=== PATIENT | male | born 1990 | race Caucasian/White ===

== ENCOUNTER → 2020-09-23 | Outpatient (CLI) | payer BC | LOC: HEART 5 08:40 | DX: R00.2 Palpitations (principal) ==

== ENCOUNTER 2020-12-15 13:05 | Emergency (ER) | payer BC | END 2020-12-15 14:40 | disposition left against medical advice (07) | LOC: ER1 13:05 | DX: Z53.21 Procedure and treatment not carried out due to patient leaving prior to being seen by health care provider (principal) ==

== ENCOUNTER 2021-05-05 13:35 | Emergency (ER) | payer BC ==
[2021-05-05] MEDS ORDERED: AUGMENTIN 875-1 EACH PO (14:45)
== END 2021-05-05 15:50 | disposition home or self-care (01) ==
LOC: ER1 13:35
DX: S01.551A Open bite of lip, initial encounter (principal); Z23 Encounter for immunization; W54.0XXA Bitten by dog, initial encounter
CPT/HCPCS: 90471; 90715; 99283

== ENCOUNTER 2021-06-23 09:12 | Emergency (ER) | payer BC ==
[~2021-06-23 09:12] MED LIST: AUGMENTIN 875-1 EACH PO
[2021-06-23 12:00] LABS: RED BLOOD COUNT 5.12 M/UL (4.20-5.50); WHITE BLOOD COUNT 7.8 K/UL (4.5-11.0)
[2021-06-23] MEDS ORDERED: FLOMAX 0.4 MG0.4 MG PO (12:52)
[2021-06-23] MEDS ORDERED: ZOFRAN 4 MG TAB4 MG PO (12:52)
[2021-06-23] MEDS ORDERED: HYDROCODON-ACE1 EAC4 PO (13:10)
== END 2021-06-23 13:20 | disposition home or self-care (01) ==
LOC: ER1 09:12
PROVIDERS: Physician Assistant
DX: N13.2 Hydronephrosis with renal and ureteral calculous obstruction (principal)
CPT/HCPCS: 80053; 81001; 85025; 96374; 96375; 99284; J1885; J2405